=== PATIENT | female | born 1930 | race Two or more races ===

== ENCOUNTER 2019-02-16 16:58 | Emergency (ER) | payer MEDICARE ==
[2019-02-16] MEDS ORDERED: Acetaminophen-Codeine 300-30mg TAB PO STA (18:15)
--- NOTE | 2019-02-16 18:39 | ED ---
Lower Extremity Injury HPI - General Chief Complaint: Extremity Injury, Lower Stated Complaint: bedsore, hip pain Time Seen by Provider: 02/16/19 17:43 Source: patient, family Mode of arrival: wheelchair Limitations: no limitations - History of Present Illness Initial Comments: Patient is an 88-year-old female with history of CLL presenting to the emergency department with a chief complaint of right hip pain. She reports a nontraumatic injury about 3 months ago causing her pain that radiates distally to the right hip. Patient reports having physical therapy twice weekly. Patient reports during this. She also developed some lower extremity edema. Patient had x-rays and MRI performed on the hip. On the osteophytic changes were noted without any signs of acute fracture or dislocations. Patient reports no significant improvement with physical therapy. However, due to the limited use of the right hip, the patient has been confined to spending most of her day in a recliner. She states this has caused her to develop a decubitus ulcer. A home health nurse comes weekly to replace the dressing. The daughter states the wound is getting worse and she long-term health care for the patient. Patient currently lives alone. Patient also states that after physical therapy treatment today, she developed sudden onset of pain in the right hip. She states that she still able to ambulate although the pain is worse than usual. Patient only takes Tylenol at home for pain. Denies any night sweats fevers or chills. Denies changes in pain at the decubitus ulcer site. - Related Data Allergies Allergy/AdvReac Type Severity Reaction Status Date / Time Sulfa (Sulfonamide Allergy Unknown Verified 02/16/19 17:11 Antibiotics) Review of Systems ROS Statement: Those systems with pertinent positive or pertinent negative responses have been documented in the HPI. ROS Other: All systems not noted in ROS Statement are negative. Past Medical History Past Medical History: Hypertension Additional Past Medical History / Comment(s): CLL History of Any Multi-Drug Resistant Organisms: None Reported Past Surgical History: Hysterectomy Past Psychological History: No Psychological Hx Reported Smoking Status: Never smoker Past Alcohol Use History: Occasional Past Drug Use History: None Reported General Exam Limitations: no limitations General appearance: alert, in no apparent distress Head exam: Present: atraumatic, normocephalic, normal inspection Eye exam: Present: normal appearance, PERRL, EOMI Pupils: Present: normal accommodation ENT exam: Present: normal exam, normal oropharynx Neck exam: Present: normal inspection, full ROM Respiratory exam: Present: normal lung sounds bilaterally. Absent: respiratory distress, wheezes Cardiovascular Exam: Present: regular rate, normal rhythm, normal heart sounds Extremities exam: Present: tenderness (Tenderness at the right hip.), pedal edema (+2 bilateral lower extremity edema at baseline.). Absent: normal inspection (Skin deformity of the right lower extremity from a previous surgery.), full ROM (Limited range of motion at the right hip due to pain), joint swelling, calf tenderness Back exam: Present: full ROM, other. Absent: normal inspection (Stage I decubitus ulcer), tenderness, CVA tenderness (R), CVA tenderness (L), muscle spasm, paraspinal tenderness, vertebral tenderness Neurological exam: Present: alert, oriented X3 Psychiatric exam: Present: normal affect, normal mood Skin exam: Present: warm, dry, intact, normal color Course Vital Signs 02/16/19 17:08 Temperature 98.1 F Pulse Rate 78 Respiratory 16 Rate Blood Pressure 138/72 O2 Sat by Pulse 98 Oximetry Medical Decision Making - Medical Decision Making Patient is an 88-year-old female with history of CLL presenting to the emergency department with chief complaint of right hip pain. On exam patient does have right hip tenderness with limited range of motion in the region. She does have +2 bilateral lower extremity edema although this appears to be her baseline according to her family members. Patient was evaluated with an MRI and x-ray that shows an old fracture and osteoarthritis. Repeat x-ray shows no significant changes. Patient given Tylenol 3 in the ED. She reports improvement in her symptoms. She also has a stage I pressure ulcer that does not appear infected. All questions regarding wound care were discussed with family. Family members were concerned for long-term care because she lives alone. I informed the family members that establishing long-term care could be done through the primary care. The family members and the patient was offered a possibility for her to be admitted, however they declined and would rather go home. They will schedule an appointment with a primary care and proceed. Patient was also given a Tylenol 3 starter pack and advised about the side effects of the medication. Strict return parameters were thoroughly discussed the patient was understanding and agreeable. Case discussed with physician. Disposition Clinical Impression: Right hip pain, Stage I decubitus ulcer and pressure area Disposition: HOME SELF-CARE Condition: Stable Instructions (If sedation given, give patient instructions): How to Prevent P ressure Injuries (ED) Additional Instructions: Please follow up with a primary care. Take medication as directed. Do not drive or operate heavy machinery taking the medication. Please return to emergency department if symptoms worsen. Is patient prescribed a controlled substance at d/c from ED?: No Referrals: Marlin Martell DO [Primary Care Provider] - 1-2 days Time of Disposition: 19:08
--- NOTE | 2019-02-16 18:42 | XR ---
EXAMINATION TYPE: XR Hip Complete RT DATE OF EXAM: 02/16/2019 COMPARISON: NONE HISTORY: Hip pain TECHNIQUE: 2 views FINDINGS: There is impacted subcapital fracture right femur. There is more than 2 cm of impaction. Th ere is no dislocation. There is osteopenia. There is some irregular cortical surface of the femoral h ead consistent with avascular necrosis. IMPRESSION: impacted subcapital fracture right femur. Age of the fracture is not clear. The margins are slightly rounded and this could be chronic.
[2019-02-16] MEDS ORDERED: ACET/COD 300 MG/30 MG STARTER PACK 6 TAB BTL PO STA (19:30)
[2019-02-16 19:42] VITALS: BP 130/79; PULSE 79; RESP 18; TEMP 97.9
== END 2019-02-16 19:42 | disposition home or self-care (01) ==
LOC: EC 16:58
DX: L89.91 Pressure ulcer of unspecified site, stage 1 (principal); M25.551 Pain in right hip; I10 Essential (primary) hypertension; Z88.2 Allergy status to sulfonamides; Z85.6 Personal history of leukemia
CPT/HCPCS: 73502; 99283